=== PATIENT | male | born 2000 | race Caucasian/White ===

== ENCOUNTER 2018-12-03 15:55 | Emergency (ER) | payer SELFPAY ==
[~2018-12-03] VITALS: Ht 170.2 cm; Wt 69.0 kg
[~2018-12-03 15:55] MED LIST: NAPR-985 PO
[2018-12-03 15:59] VITALS: BP 139/78; PULSE 89; RESP 18; Ht 170.2 cm; Wt 69.0 kg
[2018-12-03] MEDS ORDERED: KETOROLAC 30 MG INJ IM STA (16:31)
[2018-12-03] MEDS ORDERED: HYDROCODONE/APAP (5/325) TAB PO ONE (17:00)
--- NOTE | 2018-12-04 00:59 | ERD ---
ER Documentation Chief Complaint Chief Complaint right leg pain and swelling s/p being kicked while playing soccer HPI 18-year-old male presents to the emergency department complaining of right rodríguez pain after injury just prior to arrival. The patient was running during a soccer game when another player accidentally kicked the patient's rodríguez with his metal cleat. Patient reports 10/10 pain which is constant, worse with movement or palpating the area. He took no medication for relief of symptoms. He denies any head injury, loss of consciousness, or other symptoms or injuries at this time. ROS All systems reviewed and are negative except as per history of present illness. Medications Home Meds Active Scripts Naproxen* (Naprosyn*) 500 Mg Tablet, 500 MG PO BID PRN for PAIN AND/OR INFLAMMATION, #30 TAB Prov:RADHA WERNER PA-C 12/03/18 Allergies Allergies: Coded Allergies: No Known Allergy (Unverified , 12/03/18) PMhx/Soc Medical and Surgical Hx: pt denies Medical Hx, pt denies Surgical Hx Hx Alcohol Use: No Hx Substance Use: No Hx Tobacco Use: No Smoking Status: Never smoker FmHx Family History: No diabetes Physical Exam Vitals Vital Signs Date Temp Pulse Resp B/P (MAP) Pulse Ox O2 O2 Flow FiO2 Time Delivery Rate 12/03/18 97.8 89 18 139/78 98 15:59 (98) Physical Exam Const: No acute distress Head: Atraumatic Eyes: Normal Conjunctiva ENT: Normal External Ears, Nose and Mouth. Neck: Full range of motion. No meningismus. Resp: No respiratory distress. Skin: No petechiae or rashes Back: No midline or flank tenderness Ext: Is a large hematoma noted to the right rodríguez. No obvious deformity or open fracture noted. Patient is neurovascularly intact distally. Neur: Awake and alert Psych: Normal Mood and Affect Results 24 hrs Current Medications Medications Dose Sig/[place] Start Time Status Last (Trade) Ordered Route PRN Stop Time Admin Dose Reason Admin Ketorolac 30 mg ONCE STAT 12/03/18 DC 12/03/18 Tromethamine IM 16:31 16:42 (Toradol) 12/03/18 16:32 1 tab ONCE ONCE 12/03/18 DC 12/03/18 Acetaminophen PO 17:00 16:42 / 12/03/18 17:01 Hydrocodone Bitart ([place] (5/061)) [place] [address] Radiology Main Line: [phone] DIAGNOSTIC IMAGING REPORT Patient: MANAV CRONIN : 2000 Age: 18 Sex: M MR #: [id number] DOS: 12/03/18 0000 Ordering MD: RADHA WERNER PA-C Location: [facility] Room/Bed: PROCEDURE: XR Tibia and Fibula. CLINICAL INDICATION: Rodríguez trauma TECHNIQUE: Two views of the right tibia and fibula are available for review. COMPARISON: None available FINDINGS: The right tibia and fibula are intact. No acute fracture or dislocation is seen. No radiopaque foreign body is identified. No bone destructive changes are seen. The soft tissues are unremarkable. RPTAT: ZZ IMPRESSION: Unremarkable radiographs of the right leg. .Keely Scruggs MD, MD Date Time Electronically viewed and signed by .Keely Scruggs MD, MD on 12/03/2018 17:14 .T/ CC: RADHA WERNER PA-C [id number] Procedures/MDM 18-year-old male presents to the emergency department complaining of right rodríguez pain after injury. X-rays were interpreted by the radiologist as negative for signs of fracture. History and physical examination is most consistent with hematoma of the right leg. I have low suspicion for compartment syndrome, fracture, infectious process, or other emergencies. Patient will be discharged home in stable condition with naproxen and he was advised to use rice therapy at home. He should return for any new or concerning symptoms. He understands and agrees with the plan. Departure Diagnosis: Primary Impression: Injury of right leg Encounter type: initial encounter Qualified Codes: S89.91XA - Unspecified injury of right lower leg, initial encounter Condition: Fair Patient Instructions: Hematoma Ref[facility] Usted se tesfaye hecho un examen mdico de control que le indica que no est en steve condicin que requiera tratamiento urgente en el Departamento de Emergencia. Un estudio ms profundo y el tratamiento de atkins condicin pueden esperar sin ningn riesgo hasta que usted sea atendida/o en el consultorio de atkins mdico o steve clnica. Es responsabilidad suya arreglar steve allen para el seguimiento del morro. MANEJO DE CONDICIONES NO URGENTES EN EL FUTURO 1) Si usted tiene un mdico de atencin primaria: Usted debera llamar a atkins mdico de atencin primaria antes de venir al departamento de emergencia. Despus de las horas de consultorio, atkins doctor o atkins asociado/a est disponible por telfono. El mdico o enfermero de clinton en el servicio telefnico puede asesorarle por sagar medio para atender el problema, o morro contrario se puede programar steve allen. 2) Si usted no tiene un mdico de atencin primaria: Llame al mdico o clnica de referencia que aparece abajo kacey las horas de consultorio para hacer steve allen para que le vean. CLINICAS: [facility] [phone] [address] [facility] [phone] [phone] [facility]. [facility] [phone] [address] [facility]. [place] [id number] [phone] [facility]. [phone] [address] Additional Instructions: Llame al doctor MAANA y nevaeh steve ALLEN PARA DENTRO DE 1-2 SMALL.Dgale a la secretaria que nosotros le instruimos hacer esta allen.Avise o llame si atkins condicin se empeora antes de la allen. Regresa aqui si peor o no mejor. RADHA WERNER PA-C Dec 04, 2018 00:59
== END 2018-12-03 17:52 | disposition home or self-care (01) ==
LOC: FTE 15:55
DX: S80.11XA Contusion of right lower leg, initial encounter (principal); W50.1XXA Accidental kick by another person, initial encounter; Y92.322 Soccer field as the place of occurrence of the external cause
CPT/HCPCS: 73590; 96372; 99284; J1885